=== PATIENT | female | born 1995 | race Caucasian/White ===

== ENCOUNTER 2025-01-15 17:24 | Emergency (ER) | payer OTHER, SELFPAY ==
[2025-01-15 17:26] VITALS: BP 125/100
[2025-01-15 17:50] LABS: Hematocrit 42.0 % (37.0-47.0); Hemoglobin 14.2 g/dL (12.0-16.0); Mean Corp Hgb Conc. 33.8 g/dL (33.0-37.0); Mean Corpuscular Volume 89.4 fL (81.0-99.0); Nucleated Red Blood Cells % 0 %; Platelet Count 256 10^3/uL (130-400); Red Cell Dist. Width 12.2 % (11.5-14.5)
[2025-01-15 17:59] LABS: Urine Character Clear (Clear)
[2025-01-15 18:00] LABS: HCG, Urine Qualitative Screen Negative
[2025-01-15 18:02] LABS: ALT (SGPT) 17 U/L (0-35); AST (SGOT) 23 U/L (14-36); Albumin 5.0 g/dl (3.5-5.0); Alkaline Phosphatase 65 U/L (38-126); Blood Urea Nitrogen 9 mg/dl (7-17); Calcium 9.6 mg/dl (8.4-10.2); Carbon Dioxide 28 mmol/L (22-30); Chloride 101 mmol/L (98-107); Glucose 110 mg/dl (70-99); Potassium 4.6 mmol/L (3.5-5.1); Sodium 135 mmol/L (135-145); Total Protein 7.6 g/dl (6.3-8.2); eGFR > 60.00
[2025-01-15 18:22] LABS: Urine Red Blood Cell 0-2 /HPF (0-2); Urine White Cell 0-2 /HPF (0-5)
--- NOTE | 2025-01-15 18:52 | ED.GENMED ---
History of Present Illness
General
Chief Complaint: Flank Pain
Source: patient
Exam Limitations: none
Time Seen by Provider: 01/15/25 18:35
Nursing documentation reviewed up to this point in time: agreed with
History of Present Illness
History of Present Illness:
29-year-old female with left flank and left abdominal pain with urinary pressure onset about 4 days ago no nausea vomit no fever no prior episodes denies no history of ovarian cysts no vomiting no history of kidney stones
Past History
Past History
ED Past Medical History: None
ED Past Surgical History: Orthopedic; Negative Appendectomy, Bowel resection, Cardiac, Cholecystectomy or Gynecological
Social History
Tobacco: Non-smoker
Alcohol: None
Drug: None
Personal:
Living: with family
Employment: Employed
Phy Exam
Physical Exam
Physical Exam:
Physical Exam
General: 29 female mild distress
Neck: No distress
Heart: s1/s2 regular rate and rhythm, no murmur. equal radial pulses.
Lungs: no acute respiratory distress. clear bilaterally
Abdomen: Mild tenderness to left flank left lower abdomen
Neuro: alert and oriented. no focal neurological deficits
Skin: no rash
Psychiatric: well kept. interactive and cooperative
Extremities: no edema.
Course
Orders/Labs/Results
Orders:
Orders
01/15/25 17:28
Test Result ONCE
01/15/25 17:37
Complete Blood Count/With Diff Urgent
Comprehensive Metabolic Panel Urgent
01/15/25 17:38
, Urine Qualitative Screen [HCG, Urine Qualitative Screen] Urgent
Date Specimen was Collected: 01/15/25
Time Specimen was Collected: 17:28
Urinalysis Reflex To Culture Urgent
Date Specimen was Collected: 01/15/25
Time Specimen was Collected: 17:28
Urine Microscopic Reflex Cult Urgent
Urine Culture Urgent
AGNES Source: U
Specimen Description:
Date Specimen was Collected: 01/15/25
Time Specimen was Collected: 17:28
01/15/25 18:50
CT Abd/pel Without Iv Or Oral Urgent
Comment:
Reason For Exam: left flakn pain
IV Insert/Care/Rem.- Treatment PRN
0.9% Sodium Chloride 1000 ml [Nss] 1,000 ml IV BOLUS
Ketorolac [Toradol] 30 mg IV NOW STA
Morphine Sulfate 4 mg IV NOW STA
Ondansetron Injectable [Zofran] 4 mg IV NOW STA
Abnormal Lab Results
01/15/25 01/15/25
17:37 17:38
MPV 11.5 H fL
(7.4-10.4)
Glucose 110 H mg/dl
(70-99)
Urine Nitrite (Reflex) Positive A
(Negative)
Urine Bacteria (Reflex) Few A
(Negative)
01/15/25 17:37
01/15/25 17:37
Vital Signs
Initial and Last Documented VS:
Initial Vital Signs
Temp Pulse Resp BP Pulse Ox
98.7 F 104 18 125/100 99
01/15/25 17:26 01/15/25 17:26 01/15/25 17:26 01/15/25 17:26 01/15/25 17:26
Last Documented Vital Signs
Temp Pulse Resp BP Pulse Ox
98.7 F 59 18 102/64 97
01/15/25 17:26 01/15/25 19:59 01/15/25 19:59 01/15/25 19:59 01/15/25 19:59
MDM/Problems Addressed
Differential Diagnosis Includes:
Diverticulitis kidney stone ureteral stone UTI pyelonephritis ovarian cyst ectopic
MDM/Problems Addressed:
Left flank pain
*Radiology
Radiology exam reviewed: radiology read reviewed
*Pulse Oximetry
SaO2: 99
Oxygen Mode of Delivery: Room air
Patient hypoxic: no
*Critical Care Note
Total Time (30-74mins, 75-104mins- exclusive of procedures): Not Applicable
Update Note
Update Note:
8:[address] noted patient looks comfortable appears okay for trial of passage
ED Attending Note
-
Portions of this chart may have been created with voice recognition software.� Occasional wrong word or��sound alike� substitutions may have occurred due to the inherent limitations of voice recognition software.
Discharge Plan
Departure
Patient Disposition: Home (Routine Discharge)
Date of Disposition: 01/15/25
Time of Disposition: 20:24
Patient with high blood pressure during this ER visit?: No
Condition: Good
Covid-19: Not Applicable
Discharge Problem:
Kidney stone
Instructions: Kidney Stones (DC), How to Strain Your Urine
Prescriptions:
New
ibuprofen 600 mg tablet
600 mg PO Q6H PRN (Reason: Pain) Qty: 20 0RF
oxycodone-acetaminophen [Percocet] 5-325 mg tablet
1 tab PO Q6HPRN PRN (Reason: pain) Qty: 10 0RF
ondansetron 4 mg tablet,disintegrating
4 mg PO Q8H PRN (Reason: nausea and vomiting) Qty: 10 0RF
Referrals:
Netta Jones MD [Family Provider, Internal Medicine]
Alexys Garcia Jr., MD [Active, Urology] - Next open appointment
Interventions
Interventions:
*Risk Screen - Suicide Last Done: 01/15/25 17:26
*General Assessment Last Done: 01/15/25 17:26
*Neglect/Abuse Screening Last Done: 01/15/25 17:26
*ED COVID-19 Vaccine History Last Done: 01/15/25 18:37
*ED Influenza Vaccine History Last Done: 01/15/25 18:37
DS-Xdrbqq-Cmwivfighe Assessment Last Done: 01/15/25 18:37
ED-Female Genitourinary Assessment Last Done: 01/15/25 18:37
Discharge Date and Time
Print Language: DOMINICAN
[2025-01-15] MEDS: MORPHINE SULFATE 4 MG IV (19:16)
[2025-01-15] MEDS: TORADOL 30 MG IV (19:18)
[2025-01-15] MEDS: ZOFRAN 4 MG IV (19:20)
[2025-01-15] MEDS: NSS 1000 IV (19:58)
[2025-01-15 19:59] VITALS: BP 102/64
== END 2025-01-15 20:43 | disposition home or self-care (01) ==
LOC: EMR 17:24
PROVIDERS: EMERGENCY PHYSICIAN Emergency Medicine; FAMILY PHYSICIAN Internal Medicine
DX: N20.2 Calculus of kidney with calculus of ureter (principal); Z90.49 Acquired absence of other specified parts of digestive tract
CPT/HCPCS: 99284; 96374; 96375; 96361; 74176; 80053; 81003; 81015; 81025; 85025; 87086